=== PATIENT | male | born 1970 | race Caucasian/White ===

== ENCOUNTER 2020-03-09 02:40 | Observation (INO) | payer BC, SELFPAY ==
[2020-03-09 02:41] VITALS: BP 165/115; PULSE 140; RESP 20; TEMP 36.9; O2SAT 96; BMI 24.3
--- NOTE | 2020-03-09 02:43 | EKG12_ITS ---
Test Reason : Blood Pressure : / mmHG Vent. Rate : 116 BPM Atrial Rate : 116 BPM P-R Int : 112 ms QRS Dur : 080 ms QT Int : 354 ms P-R-T Axes : 078 075 048 degrees QTc Int : 492 ms Sinus tachycardia Otherwise normal ECG Confirmed by MO WILSON, ADRIAN ([id number]), graphic editor AMAURI OCONNOR ([id number]) on 03/11/2020 10:46:58 AM Referred By: RAMAN Confirmed By:ADRIAN HASSAN MD
--- NOTE | 2020-03-09 02:43 | CT_ITS ---
HISTORY: AMS, TRAUMA ADDITIONAL HISTORY: None provided. COMPARISON: None EXAMINATION/TECHNIQUE: CT Head or Brain W/O Contrast Injection. Axial, coronal and sagittal images. Number of images including paperwork: [id number]. A radiation dose optimization technique was used for this scan. FINDINGS: BRAIN: No acute hemorrhage or mass. No definite acute infarct; MRI more sensitive. VENTRICULAR SYSTEM: No hydrocephalus. PARANASAL SINUSES AND MASTOIDS: No air-fluid level in the imaged extent. ORBITS: Unremarkable imaged extent. SKELETON AND SOFT TISSUES: Calvarium intact. ASPECTS score: Not applicable. CT/Brain/Head without Contrast IMPRESSION: No acute intracranial abnormality. Individualized dose optimization techniques were used for this CT. at 0356 Reported and signed by: Karina Boogie MD Electronically Signed: Karnia Boogie MD at 3:56 EDT Tel , Service support ,
[2020-03-09] MEDS: Midazolam 5 MG/ML Syringe IM (02:48)
[2020-03-09] MEDS: Haloperidol Lactate 5 MG/ML Vial IM (02:48)
--- NOTE | 2020-03-09 02:54 | ED.RN ---
CPS NOTIFIED THIS PT IS TOO WORKED UP FOR AN EKG AT THIS TIME, WILL CALL WHEN THEY ARE CALM
--- NOTE | 2020-03-09 02:56 | CT_ITS ---
HISTORY: AMS, TRAUMA. ADDITIONAL HISTORY: None provided COMPARISON: None TECHNIQUE: Noncontrast CT images of the cervical spine. 2D images were reviewed to aid in assessment of the cervical spine. A radiation dose optimization technique was used for this scan. Number of images including paperwork: 429 FINDINGS: BONES: No acute fracture. No suspicious bone lesion. VERTEBRAL ALIGNMENT: No traumatic subluxation. Loss of normal cervical lordosis. DISCS AND JOINTS: Mild multilevel disc space narrowing. SPINAL CANAL AND FORAMINA: No critical canal stenosis. SOFT TISSUES: No prevertebral soft tissue swelling. No pathologic-appearing cervical adenopathy. Heterogeneous thyroid with subcentimeter nodules. No further evaluation or follow-up warranted based upon consensus guidelines. LUNG APICES: Unremarkable. PARANASAL SINUSES: Unremarkable imaged portions if any. CT/Spine Cervical without Contras IMPRESSION: No acute osseous abnormality. Individualized dose optimization techniques were used for this CT. at 0358 Reported and signed by: Karina Boogie MD Electronically Signed: Karina Boogie MD at 3:58 EDT Tel , Service support ,
[2020-03-09 02:57] VITALS: BP 130/66; PULSE 116; RESP 18; O2SAT 96
--- NOTE | 2020-03-09 03:04 | ED.RN ---
Pockets were searched by police. [facility] felder card, 7.30 in [place], cell phone and car keys were placed in bag with patient label and left at charge nurse desk.
[2020-03-09 03:08] LABS: Absolute Lymphocyte Count 3.98 X10^3/uL (0.83-4.51); Absolute Neutrophil Count 6.6 X10^3/uL (2.0-7.7); Basophil# 0.03 X10^3/uL; Basophil% 0.3 % (0-1); Eosinophil# 0.21 X10^3/uL; Eosinophils% 1.8 % (0-5); Hematocrit 48.1 % (40-54); Hemoglobin 15.2 g/dL (13.0-16.5); Lymphocyte # 3.98 X10^3/ul (4.0); Lymphocyte % 33.5 % (19-41); Mean Corp Hgb Conc 31.6 g/dL (32-36); Mean Corpuscular Hgb 31.3 pg (27.0-32.0); Mean Platelet Vol. 11.9 fl (6.2-12.0); Monocyte# 0.92 X10^3/uL; Monocyte% 7.7 % (0-10); NRBC Flagged by Analyzer 0 % (0-5); Neutrophil # 6.62 X10^3/uL (2.7-7.7); Neutrophil % 55.6 % (47-70); Platelet Count 268 K/mm3 (150-450); RBC Distribution Width CV 12.9 % (11.6-14.6); RBC Distribution Width SD 47.2 fl (35.1-43.9); Red Blood Count 4.86 M/mm3 (4.6-6.2); White Blood Count 11.9 K/mm3 (4.4-11.0)
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
[2020-03-09 03:22] LABS: Bacteria 0 SEEN /hpf (None Seen); Mucous, Urine 0 SEEN /hpf (<or=2+); Red Blood Cells-Urine 0 SEEN /hpf (0-5); Squamous Epithelial Cells - UA 0 SEEN /hpf (0-5); White Blood Cells 0 SEEN /hpf (0-5)
[2020-03-09 03:24] LABS: ALB/GLOB Ratio 0.8 RATIO (0.9-2.4); AST(SGOT) 53 U/L (15-37); Alanine Aminotransfer ALT/SGPT 42 U/L (16-61); Albumin, Serum 3.9 g/dL (3.2-5.0); Alkaline Phosphatase 81 U/L (45-117); Anion Gap 26 (5-15); BUN 15 mg/dL (7-18); BUN/Creat Ratio 8.6 RATIO (10-20); Calcium,Total 8.9 mg/dL (8.5-10.1); Chloride 101 mmol/L (98-107); Creatinine, Serum 1.74 mg/dL (0.70-1.30); EST Glomerular Filtration Rate 45 mL/min (>60); Est Glom Filt Rate - Afr Amer 54 mL/min (>60); Estimated Creatinine Clearance 53.61 ml/min; Globulin 4.6 g/dL (2.2-4.2); Glucose 188 mg/dL (74-106); Potassium 3.8 mmol/L (3.5-5.1); Protein, Total 8.5 g/dL (6.4-8.2); Sodium Level 138 mmol/L (136-145)
[2020-03-09 03:24] LABS: Color, Urine Yellow (Yellow); Glucose, Dipstick Normal (Normal); Ketone-Dipstick Negative (Negative); Leukocyte Esterase-Dipstick Negative /ul (Negative); Nitrite-Dipstick Negative (Negative); Occult Blood-Urine Negative /ul (Negative); Protein-Dipstick Negative (Negative); Urine Bilirubin Dipstick Negative (Negative); Urine Clarity Cloudy (Clear); Urine Urobilinogen Normal (Normal)
[2020-03-09 03:29] LABS: Amorphous Sediment 1+
[2020-03-09 03:35] LABS: Amphetamine Urine VISTA POSITIVE (<1000 ng/mL); Barbiturate Urine VISTA NEGATIVE (< 200 ng/mL); Benzodiazepine Urine VISTA NEGATIVE (< 200 ng/mL); Cocaine Urine VISTA NEGATIVE (< 300 ng/mL); Ecstacy Urine VISTA NEGATIVE (< 500 ng/mL); Methadone Urine VISTA NEGATIVE (< 300 ng/mL); PCP Urine VISTA NEGATIVE (< 25 ng/mL); THC Urine VISTA POSITIVE (< 50 ng/mL); Vista UDS pH Range 6
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
[2020-03-09 03:56] LABS: CPK Total, Creatine Kinase 882 U/L (39-308)
[2020-03-09] MEDS: 0.9% Normal Saline 1,000 ML 999 ML IV ×2 (04:06→05:20)
--- NOTE | 2020-03-09 05:21 | ED.RN ---
0500 restraints removed,pt sleeping.
[2020-03-09 06:14] VITALS: PULSE 67; RESP 18; O2SAT 98
[2020-03-09 07:01] LABS: Anion Gap 4 (5-15); BUN 16 mg/dL (7-18); BUN/Creat Ratio 11.9 RATIO (10-20); CPK Total, Creatine Kinase 1873 U/L (39-308); Calcium,Total 7.9 mg/dL (8.5-10.1); Chloride 111 mmol/L (98-107); Creatinine, Serum 1.35 mg/dL (0.70-1.30); EST Glomerular Filtration Rate 60 mL/min (>60); Est Glom Filt Rate - Afr Amer 72 mL/min (>60); Estimated Creatinine Clearance 69.09 ml/min; Glucose 105 mg/dL (74-106); Potassium 4.2 mmol/L (3.5-5.1); Sodium Level 142 mmol/L (136-145)
--- NOTE | 2020-03-09 07:17 | NURSING ---
DR DODSON FOR DR VINSON
--- NOTE | 2020-03-09 07:24 | NURSING ---
MED SURG [place]OTSONIS RHABDOMYOLYSIS OBS
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
[2020-03-09 07:41] VITALS: BP 116/65; PULSE 70; RESP 19; TEMP 36.4; O2SAT 97
[2020-03-09] MEDS: 0.9% Normal Saline 1,000 ML 150 ML IV (07:45)
[2020-03-09 08:02] VITALS: BMI 25.3; BMI 25.4
[2020-03-09 08:06] VITALS: BP 125/67; PULSE 73; RESP 12; TEMP 36.9; O2SAT 97
[2020-03-09 08:08] VITALS: BP 118/63
--- NOTE | 2020-03-09 11:26 | NURSING ---
Pt leaving [place], Dr. Dooley notified. Pt refused to allow this nurse to d/c IV. Pt self removed. Catheter intact.
== END 2020-03-09 11:20 | disposition left against medical advice (07) ==
LOC: ED 07:06 → PCU 12:56
PROVIDERS: Admitting Provider Family Medicine; Emergency Provider Emergency Medicine; Visit Provider Family Medicine
DX: F15.959 Other stimulant use, unspecified with stimulant-induced psychotic disorder, unspecified (principal); M62.82 Rhabdomyolysis; F17.210 Nicotine dependence, cigarettes, uncomplicated; R00.0 Tachycardia, unspecified; N17.9 Acute kidney failure, unspecified; R74.8 Abnormal levels of other serum enzymes; Z79.899 Other long term (current) drug therapy; Z79.82 Long term (current) use of aspirin
CPT/HCPCS: 36415; 70450; 72125; 80048; 80053; 80307; 80320; 81001; 82550; 84484; 85025; 93005; 96360; 96361; 96372; 99218; 99285; J7030; A4216; G0378; G0480

== ENCOUNTER 2020-05-23 13:34 | Emergency (ER) | payer BC, SELFPAY ==
[2020-03-09 08:02] VITALS: BMI 25.3
[2020-05-23 13:34] VITALS: BP 151/72; PULSE 63; RESP 16; TEMP 35.7; O2SAT 99; BMI 25.8
--- NOTE | 2020-05-23 13:46 | ED.DCSUM_ITS ---
History of Present Illness Chief Complaint: Med Refill Informant: Patient Narrative: Patient presents requesting a refill of his trazodone. He takes 200 mg nightly to help with sleep and depression. He states he moved here from [place] 1 month ago. He is currently out of his medication and in the process of getting his insurance cards switched. He states his tax compliance officer told him to come to the emergency room to get refills on his medications. - Past Medical History (1) Depression Status: Chronic Past Medical History - Allergies and Home Meds Allergies/Adverse Reactions: Allergies No Known Allergies Allergy (Verified 03/09/20 08:17) Primary Care Physician: [facility] [GROUP OF PHYSICIANS] - Zeferino Harris MD [STAFF PHYSICIAN] - Surgical History: - - unknown Smoking Status: Current every day smoker - Family History Paternal Family History: Reports: - - Unable to obtain secondary to sedation Maternal Family History: Reports: - - Unable to obtain secondary to sedation Review of Systems General: Denies: Chills, Fever Eyes: Denies: Visual changes - bilaterally ENT: Denies: Bilateral ear pain Cardiovascular: Denies: Chest pain Respiratory: Denies: Dyspnea, Cough Gastrointestinal: Denies: Abdominal pain Neurological: Denies: Headache Hematologic: Denies: Easy bruising, Easy bleeding Allergy: Denies: Uticaria Physical Exam Vital Signs/Narrative: Vital Signs Temp Pulse Resp BP Pulse Ox 05/23/20 13:34 96.3 F L 63 16 151/72 H 99 Inital Vital Signs reviewed: Yes General: Well nourished, Well developed Head: Normocephalic ENT: Moist mucous membranes Neck: Supple Cardiovascular: Regular rate, Regular rhythm Respiratory: No distress, CTA bilaterally Abdomen: Soft, Nontender Extremities: Nontender Skin: Normal color Neurological: Alert, Oriented x3 Psychological: Normal affect Diagnostic/Tx/Re-eval - Medical Decision Making I advised the patient at this time is only willing to write him a prescription for 10 pills. I advised him that the emergency room is not a place to come for refills of his chronic prescriptions. I will refer him to local PCP as well as to the counseling center. He states he is currently working with [facility]. I will also leave a message for our social work to see if they can offer any other assistance on how he can get his medications refilled. ED Disposition - Plan for ED Patient: Disposition: Home or Assisted Living Diagnosis: Medication refill Instructions: Med Refill Prescriptions: traZODone [Desyrel] 200 mg PO QHS #10 tab Transmission Status: Received by [id number] Referrals: Zeferino Harris MD [STAFF PHYSICIAN] - [facility] [GROUP OF PHYSICIANS] -
--- NOTE | 2020-05-24 19:00 | CM.ED ---
SOCIAL WORK Informant: Dr. eLvi Reason for Consult: Follow up call for resources from ED visit on 05/23/2020. Updated by Dr. Levi patient was seen in ER for medication refill-Trazodone. Patient moved to [place] from [place] 1 month ago. Reviewed patient's chart and completed follow up phone call. Patient reports does not currently have insurance and is working on getting set up with Medicaid in [place]. Patient states is working with [facility] and was told they do not have a doctor there to prescribe psych medications. Patient states needs to establish with PCP. Reviewed local primary care providers with patient. Patient to follow up with [facility] office tomorrow morning to set up new patient appointment. All questions answered. Patient declines any further needs. Jasmin Hua, AUTOMOBILE SERVICE ADVISOR, AIR QUALITY CHEMIST
== END 2020-05-23 14:14 | disposition home or self-care (01) ==
LOC: ED 13:59
PROVIDERS: Emergency Provider Emergency Medicine
DX: F32.9 Major depressive disorder, single episode, unspecified (principal); Z76.0 Encounter for issue of repeat prescription; Z79.82 Long term (current) use of aspirin; Z79.899 Other long term (current) drug therapy; F17.200 Nicotine dependence, unspecified, uncomplicated
CPT/HCPCS: 99282

== ENCOUNTER → 2020-05-28 11:04 | Outpatient (CLI) | payer SELFPAY ==
[2020-05-26 11:01] VITALS: BMI 25.8
[2020-05-28 12:41] LABS: Absolute Lymphocyte Count 1.54 X10^3/uL (0.83-4.51); Absolute Neutrophil Count 3.3 X10^3/uL (2.0-7.7); Basophil# 0.03 X10^3/uL; Basophil% 0.5 % (0-1); Eosinophil# 0.34 X10^3/uL; Eosinophils% 5.9 % (0-5); Hematocrit 48.1 % (40-54); Hemoglobin 15.1 g/dL (13.0-16.5); Lymphocyte # 1.54 X10^3/ul (4.0); Lymphocyte % 26.9 % (19-41); Mean Corp Hgb Conc 31.4 g/dL (32-36); Mean Corpuscular Hgb 30.1 pg (27.0-32.0); Mean Platelet Vol. 12.4 fl (6.2-12.0); Monocyte# 0.54 X10^3/uL; Monocyte% 9.4 % (0-10); NRBC Flagged by Analyzer 0 % (0-5); Neutrophil # 3.26 X10^3/uL (2.7-7.7); Platelet Count 243 K/mm3 (150-450); RBC Distribution Width CV 12.6 % (11.6-14.6); Red Blood Count 5.01 M/mm3 (4.6-6.2); White Blood Count 5.7 K/mm3 (4.4-11.0)
[2020-05-28 13:28] LABS: Anion Gap 2 (5-15); BUN 21 mg/dL (7-18); BUN/Creat Ratio 16.2 RATIO (10-20); Calcium,Total 9.2 mg/dL (8.5-10.1); Chloride 105 mmol/L (98-107); Cholesterol 211 mg/dL (200); EST Glomerular Filtration Rate 63 mL/min (>60); Est Glom Filt Rate - Afr Amer 76 mL/min (>60); Glucose 100 mg/dL (74-106); High Density Lipoprotein 45 mg/dL; PSA,Total - Annual Screen 0.57 ng/mL (0.00-4.00); Sodium Level 139 mmol/L (136-145); Thyroid Stim Hormone (TSH) 1.99 uIU/mL (0.358-3.74); Triglycerides 162 mg/dL; Very Low Density Lipoprotein 32 mg/dL (5-40)
[2020-05-28 14:11] LABS: HIV - WCH Non-Reactive (Nonreactive); Hepatitis C Antibody Non-Reactive (Nonreactive)
[2020-05-31 20:08] LABS: HEPATITIS B SURFACE AG Negative (Negative); Hepatitis Be Ag Negative (Negative)
[2020-06-01 01:19] LABS: Hepatitis Be Ab Negative (Negative)
== END ==
PROVIDERS: PCP Internal Medicine; Referring Provider Internal Medicine; Visit Provider Internal Medicine
DX: Z00.00 Encounter for general adult medical examination without abnormal findings (principal); K92.1 Melena; F11.90 Opioid use, unspecified, uncomplicated; F32.9 Major depressive disorder, single episode, unspecified
CPT/HCPCS: 36415; 80048; 80061; 83036; 84153; 84443; 85025; 86703; 86707; 86803; 87340; 87350; G0103

== ENCOUNTER → 2020-06-02 | Outpatient (CLI) | payer SELFPAY ==
[2020-05-26 11:01] VITALS: BMI 25.8
== END | disposition home or self-care (01) ==
LOC: LABSPEC 13:32
PROVIDERS: PCP Internal Medicine; Referring Provider Internal Medicine; Visit Provider Internal Medicine
DX: Z00.00 Encounter for general adult medical examination without abnormal findings (principal); F32.9 Major depressive disorder, single episode, unspecified; K92.1 Melena
CPT/HCPCS: 82274

== ENCOUNTER 2020-06-10 16:46 | Emergency (ER) | payer BC, SELFPAY ==
[2020-05-26 11:01] VITALS: BMI 25.8
[2020-06-10 16:47] VITALS: BP 151/84; PULSE 83; RESP 16; TEMP 36.6; O2SAT 98; BMI 25.1
--- NOTE | 2020-06-10 17:00 | ED.RN ---
PT [facility]-- [phone]
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
[2020-06-10 17:40] LABS: Absolute Lymphocyte Count 1.39 X10^3/uL (0.83-4.51); Absolute Neutrophil Count 6.9 X10^3/uL (2.0-7.7); Basophil# 0.02 X10^3/uL; Basophil% 0.2 % (0-1); Eosinophil# 0.04 X10^3/uL; Eosinophils% 0.5 % (0-5); Hematocrit 47.2 % (40-54); Hemoglobin 15.8 g/dL (13.0-16.5); Lymphocyte # 1.39 X10^3/ul (4.0); Lymphocyte % 15.7 % (19-41); Mean Corp Hgb Conc 33.5 g/dL (32-36); Mean Corpuscular Hgb 30.7 pg (27.0-32.0); Mean Corpuscular Volume 91.7 fL (80-94); Mean Platelet Vol. 11.5 fl (6.2-12.0); Monocyte# 0.56 X10^3/uL; Monocyte% 6.3 % (0-10); NRBC Flagged by Analyzer 0 % (0-5); Neutrophil # 6.85 X10^3/uL (2.7-7.7); Neutrophil % 77.1 % (47-70); Platelet Count 258 K/mm3 (150-450); RBC Distribution Width CV 12.7 % (11.6-14.6); RBC Distribution Width SD 43.1 fl (35.1-43.9); Red Blood Count 5.15 M/mm3 (4.6-6.2); White Blood Count 8.9 K/mm3 (4.4-11.0)
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
--- NOTE | 2020-06-10 18:00 | ED.RN ---
lab reports pt urine specimen in testing as water. pt reports he will give another sample with confronted by
[2020-06-10 18:09] LABS: Anion Gap 7 (5-15); BUN 16 mg/dL (7-18); Calcium,Total 9.9 mg/dL (8.5-10.1); Chloride 104 mmol/L (98-107); Creatinine, Serum 1.07 mg/dL (0.70-1.30); EST Glomerular Filtration Rate 78 mL/min (>60); Est Glom Filt Rate - Afr Amer 95 mL/min (>60); Estimated Creatinine Clearance 87.18 ml/min; Glucose 114 mg/dL (74-106); Potassium 4.2 mmol/L (3.5-5.1); Sodium Level 140 mmol/L (136-145); Thyroid Stim Hormone (TSH) 0.77 uIU/mL (0.358-3.74)
[2020-06-10 18:35] LABS: Alcohol, Blood (Medical)-Serum < 3.0 mg/dL
[2020-06-10 19:05] LABS: Amphetamine Urine VISTA POSITIVE (<1000 ng/mL); Barbiturate Urine VISTA NEGATIVE (< 200 ng/mL); Benzodiazepine Urine VISTA NEGATIVE (< 200 ng/mL); Cocaine Urine VISTA POSITIVE (< 300 ng/mL); Ecstacy Urine VISTA NEGATIVE (< 500 ng/mL); Methadone Urine VISTA NEGATIVE (< 300 ng/mL); PCP Urine VISTA NEGATIVE (< 25 ng/mL); THC Urine VISTA NEGATIVE (< 50 ng/mL); Vista UDS pH Range 6
[2020-06-10 19:18] VITALS: RESP 16
== END 2020-06-10 19:19 | disposition home or self-care (01) ==
PROVIDERS: Emergency Provider Emergency Medicine
DX: F22 Delusional disorders (principal); F19.10 Other psychoactive substance abuse, uncomplicated; F17.200 Nicotine dependence, unspecified, uncomplicated; Z79.82 Long term (current) use of aspirin; Z79.899 Other long term (current) drug therapy
CPT/HCPCS: 80048; 80307; 80320; 84443; 85025; 99282; G0480

== ENCOUNTER 2020-06-10 20:53 | Emergency (ER) | payer BC, SELFPAY ==
[2020-06-10 16:47] VITALS: BMI 25.1
[2020-06-10 20:53] VITALS: BP 167/94; PULSE 116; RESP 16; TEMP 37; O2SAT 96; BMI 24.9
--- NOTE | 2020-06-10 21:13 | EKG12_ITS ---
Test Reason : CP Blood Pressure : / mmHG Vent. Rate : 112 BPM Atrial Rate : 112 BPM P-R Int : 122 ms QRS Dur : 086 ms QT Int : 324 ms P-R-T Axes : 077 069 031 degrees QTc Int : 442 ms Sinus tachycardia Nonspecific T wave abnormality Abnormal ECG Confirmed by MO WILSON, ADRIAN ([id number]), editorial clerk MARIANA CAIN ([id number]) on 06/14/2020 1:07:09 PM Referred By: Confirmed By:ADRIAN HASSAN MD
--- NOTE | 2020-06-10 21:13 | ED.VIS.GEN ---
History of Present Illness Chief Complaint: Chest Pain Informant: Patient Onset: Today - about 15 min after getting home after leaving here Context: Sudden Onset - at rest Timing: Continuous Quality: pain Location: substernal; no radiation Current Severity: Mild Maximum Severity: Moderate Worsened by: nothing in particular Relieved by: nothing in particular Associated Symptoms: Suicidal thoughts. See below. Narrative: Patient presents with chest pain that has been there for about 2 hours now, he was seen here a little while earlier by myself because of paranoid behavior. Social work spoke with him. He denied being suicidal to me and her. Now he states he is suicidal to the point where he cannot guarantee his safety at home and feels like he will kill himself. When asked why he did not admit this to me or the high school social studies tutor earlier, he states there has been a lot of stress in his life and he now admits that he felt this way earlier but lied to us. He tested positive for cocaine, he states the last time he used that was yesterday, he did not use it at all today. - Past Medical History (1) Polysubstance abuse Status: Chronic (2) Depression Status: Chronic (3) Insomnia Status: Chronic Past Medical History - Allergies and Home Meds Allergies/Adverse Reactions: Allergies No Known Allergies Allergy (Verified 06/10/20 20:58) Primary Care Physician: Care Physician,No Primary [Primary Care Provider] - Surgical History: - - unknown Lives: Spouse/ Significant Other Smoking Status: Current every day smoker - Family History Paternal Family History: Family History (Last Updated 05/26/20 @ 11:00 by Elisha Chatman) Father Hypertension Myocardial infarction Mother COPD (chronic obstructive pulmonary disease) Grandmother Diabetes Breast cancer Family History: Reports: - - Unable to obtain secondary to sedation Maternal Family History: Family History (Last Updated 05/26/20 @ 11:00 by Elisha Chatman) Father Hypertension Myocardial infarction Mother COPD (chronic obstructive pulmonary disease) Grandmother Diabetes Breast cancer Family History: Reports: - - Unable to obtain secondary to sedation Review of Systems General: Denies: Chills, Fever, Sweats Eyes: Denies: Visual changes - bilaterally, Diplopia ENT: Denies: Bilateral ear pain, Rhinorrhea, Sore throat Cardiovascular: Reports: Chest pain. Denies: Palpitations Respiratory: Denies: Dyspnea, Cough, Dyspnea on exertion Gastrointestinal: Denies: Abdominal pain, Nausea, Vomiting, Diarrhea, Melena, Hematochezia Genitourinary: Denies: Dysuria, Hematuria, Frequency Musculoskeletal: Denies: Myalgias, Back pain, Extremity Pain Skin: Denies: Rash, Wounds Neurological: Denies: Headache, Weakness, Numbness Psych: Reports: Suicidal thoughts, Suicidal ideations Endocrine: Denies: Polyuria, Polydipsia Physical Exam Vital Signs/Narrative: Vital Signs Temp Pulse Resp BP Pulse Ox 06/10/20 20:53 98.6 F 116 H 16 167/94 H 96 Inital Vital Signs reviewed: Yes General: Well nourished, Well developed, No Acute Distress Head: Normocephalic, Atraumatic Eyes: Perrl, EOMI ENT: Moist mucous membranes, No rhinorrhea Neck: Supple, Nontender, No lymphadenopathy Cardiovascular: Regular rate, Regular rhythm, No murmurs Respiratory: No distress, CTA bilaterally, Chest nontender Abdomen: Soft, Nontender, Nondistended, Normal bowel sounds Back: Nontender, Normal Inspection. Negative for: CVA tenderness Extremities: Nontender, No edema. Negative for: Calf Tenderness Skin: Normal color, No rash, No Trauma Neurological: Alert, Oriented x3, Cranial nerves II-XII grossly intact, Normal Strength, Normal Sensation Psychological: - - Some paranoia. Patient keeps stating is there a gas leak in this room? My eyes keep watering. I think I need another room. Admits to suicidal ideation. Denies homicidal ideation. Diagnostic/Tx/Re-eval Impressions Chest X-Ray 06/10/20 21:43 IMPRESSION: Mild chronic interstitial changes. No acute disease Electronically Signed: Srinivasan Ortiz MD at 22:31 EST , Service support , 06/10/20 21:43 Chest 1 View (Portable) [RAD] Stat Laboratory Results 06/10/20 21:37 Troponin I < 0.015 - Rhythm Strip Rhythm Strip: Sinus Tach Rate: 112 - EKG Initial EKG Interpretation: No Acute Injury Pattern, Sinus Tachycardia, Non-Specific ST Changes - Inferior and lateral without associated ST segment elevations or depressions Prior: No Prior - Medical Decision Making On reevaluation after the negative testing, patient states his chest pain is resolved. He declined the GI cocktail, the discomfort resolved on its own, he was somewhat paranoid about taking the medication and asked me to explain it, which I did, however he did become more paranoid as he was observed for the next hour or 2. He was pacing the room concerned about what was going on where he could not see. We offered him something to help him relax and he declined it. He is wanting to talk to psychiatry because he is suicidal does not feel safe to go home. I do not feel that his chest pain was cocaine chest pain, since he had not had any in over 24 hours. It is certainly still possible to test positive in the urine for cocaine this far out, so that is nonspecific and does not indicate that he had any in the last 24 hours or otherwise. Given all this, and the lack of any ischemic EKG changes, he is medically cleared for crisis evaluation and I anticipate continuing to hold him on pink slip for psychiatric admission/transfer. ED Disposition - Plan for ED Patient: Disposition: Psychiatric Hospital or Unit Diagnosis: Chest pain, non-cardiac, Paranoia, Polysubstance abuse, Suicidal ideation Referrals: Care Physician,No Primary [Primary Care Provider] -
--- NOTE | 2020-06-10 21:43 | RAD_ITS ---
STUDY: X-RAY CHEST REASON FOR EXAM: Male, 49 years old. CHEST PAIN TECHNIQUE: AP portable COMPARISON: 07/01/2014 FINDINGS: There is mild interstitial thickening in both lower lobes. There is no demonstrated pleural abnormality. Normal size heart. Normal mediastinum and gadiel. Normal visualized pulmonary arteries. Normal visualized aortic arch and descending thoracic aorta. Normal visualized thoracic spine. Normal visualized ribs, clavicles, and shoulders. There is no demonstrated abnormality of the visualized soft tissue structures of the upper abdomen. No significant change since prior exam RAD/Chest 1 View (Portable) IMPRESSION: Mild chronic interstitial changes. No acute disease Electronically Signed: Srinivasan Ortiz MD at 22:31 EST , Service support ,
[2020-06-10 22:11] VITALS: BP 141/74; PULSE 98; RESP 16; O2SAT 96
[2020-06-10] MEDS: Ziprasidone IM 20 MG/ML VIAL IM (23:33)
[2020-06-10 23:46] VITALS: RESP 18
[2020-06-11] VITALS (7 sets, daily range): BP systolic 107; BP diastolic 63; PULSE 82; RESP 14–16; O2SAT 97
--- NOTE | 2020-06-11 00:30 | ED.RN ---
REPORT FAXED TO CRISIS AT [id number], THIS PT WILL BE TURNED OVER TO THE NEXT SHIFT AT 0030 THIS MORNING
--- NOTE | 2020-06-11 00:48 | ED.RN ---
crisis called to talk to patient. Patient at this time sedated and not able to talk to crisis. We will call crisis back when patient can wake up
--- NOTE | 2020-06-11 04:35 | ED.RN ---
CALLED CRISIS TO ADVISE JOSELIN THAT THIS PT IS AWAKE AND ABLE TO TALK
--- NOTE | 2020-06-11 05:26 | ED.VISSUMM ---
- ER Visit Summary Date of Service: 06/11/20 Chief Complaint: [] History of Present Illness: The patient is a 49 M [] Physical Examination: [] Test Results: [] Emergency Department Course and Treatment: [] Treatment Plan: [] Disposition: [] Impression: [] This note was generated with [facility] dictation software. It may contain incorrect words, spelling, and punctuation that were not noted in review of the chart prior to signing ED Disposition - Plan for ED Patient: Disposition: Psychiatric Hospital or Unit Diagnosis: Chest pain, non-cardiac, Paranoia, Polysubstance abuse, Suicidal ideation Instructions: ED Drug Abuse Referrals: Care Physician,No Primary [Primary Care Provider] -
== END 2020-06-11 05:37 | disposition home or self-care (01) ==
PROVIDERS: Emergency Provider Emergency Medicine
DX: R07.89 Other chest pain (principal); F22 Delusional disorders; R45.851 Suicidal ideations; F19.10 Other psychoactive substance abuse, uncomplicated; F32.9 Major depressive disorder, single episode, unspecified; F17.200 Nicotine dependence, unspecified, uncomplicated; Z79.82 Long term (current) use of aspirin; Z79.899 Other long term (current) drug therapy
CPT/HCPCS: 71045; 84484; 93005; 96372; 99285; J3486

== ENCOUNTER 2020-06-13 08:55 | Emergency (ER) | payer BC, SELFPAY ==
[2020-06-13 08:57] VITALS: BP 138/95; PULSE 102; RESP 16; TEMP 36.2; O2SAT 98; BMI 24.3
[2020-06-13] MEDS: LORazepam 2 MG/ML Syringe IM (09:10)
[2020-06-13] MEDS: Ziprasidone IM 20 MG/ML VIAL IM (09:10)
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
--- NOTE | 2020-06-13 09:31 | ED.RN ---
girlfriend presented to ed with concerns for pt. states he is a harm to self and other they way he has been acting irratically. requesting call from counselor so that she can share what has been going on with him he needs help. Aditi [phone]
[2020-06-13 09:57] LABS: Absolute Lymphocyte Count 1.34 X10^3/uL (0.83-4.51); Absolute Neutrophil Count 5.1 X10^3/uL (2.0-7.7); Basophil# 0.02 X10^3/uL; Basophil% 0.3 % (0-1); Eosinophil# 0.04 X10^3/uL; Eosinophils% 0.6 % (0-5); Hematocrit 42.8 % (40-54); Hemoglobin 14.8 g/dL (13.0-16.5); Lymphocyte # 1.34 X10^3/ul (4.0); Lymphocyte % 18.9 % (19-41); Mean Corp Hgb Conc 34.6 g/dL (32-36); Mean Corpuscular Hgb 31.4 pg (27.0-32.0); Mean Corpuscular Volume 90.9 fL (80-94); Mean Platelet Vol. 11.4 fl (6.2-12.0); Monocyte# 0.59 X10^3/uL; Monocyte% 8.3 % (0-10); NRBC Flagged by Analyzer 0 % (0-5); Neutrophil # 5.08 X10^3/uL (2.7-7.7); Neutrophil % 71.6 % (47-70); Platelet Count 253 K/mm3 (150-450); RBC Distribution Width CV 12.2 % (11.6-14.6); RBC Distribution Width SD 41.1 fl (35.1-43.9); Red Blood Count 4.71 M/mm3 (4.6-6.2); White Blood Count 7.1 K/mm3 (4.4-11.0)
[2020-06-13 10:01] VITALS: RESP 16
[2020-06-13 10:02] LABS: Amphetamine Urine VISTA POSITIVE (<1000 ng/mL); Barbiturate Urine VISTA NEGATIVE (< 200 ng/mL); Benzodiazepine Urine VISTA NEGATIVE (< 200 ng/mL); Cocaine Urine VISTA POSITIVE (< 300 ng/mL); Ecstacy Urine VISTA NEGATIVE (< 500 ng/mL); Methadone Urine VISTA NEGATIVE (< 300 ng/mL); PCP Urine VISTA NEGATIVE (< 25 ng/mL); THC Urine VISTA NEGATIVE (< 50 ng/mL); Vista UDS pH Range 6
[2020-06-13 10:08] LABS: Anion Gap 8 (5-15); BUN 13 mg/dL (7-18); BUN/Creat Ratio 11.7 RATIO (10-20); Calcium,Total 9.3 mg/dL (8.5-10.1); Chloride 103 mmol/L (98-107); Creatinine, Serum 1.11 mg/dL (0.70-1.30); EST Glomerular Filtration Rate 75 mL/min (>60); Est Glom Filt Rate - Afr Amer 91 mL/min (>60); Estimated Creatinine Clearance 84.03 ml/min; Glucose 124 mg/dL (74-106); Potassium 3.3 mmol/L (3.5-5.1); Sodium Level 137 mmol/L (136-145)
[2020-06-13 10:28] LABS: Alcohol, Blood (Medical)-Serum < 3.0 mg/dL
[2020-06-13 11:00] VITALS: RESP 20
[2020-06-13 11:45] VITALS: BP 132/81; PULSE 70; RESP 15; O2SAT 100
== END 2020-06-13 12:22 | disposition home or self-care (01) ==
LOC: ED 10:42
PROVIDERS: Emergency Provider Emergency Medicine
DX: F19.10 Other psychoactive substance abuse, uncomplicated (principal); F22 Delusional disorders; R41.0 Disorientation, unspecified; F41.9 Anxiety disorder, unspecified; R45.1 Restlessness and agitation; Z78.1 Physical restraint status; F17.200 Nicotine dependence, unspecified, uncomplicated; Z79.82 Long term (current) use of aspirin; Z79.899 Other long term (current) drug therapy
CPT/HCPCS: 36415; 80048; 80307; 80320; 85025; 96372; 99284; G0480; J3486

== ENCOUNTER → 2020-08-18 | Outpatient (CLI) | payer MEDICAID, SELFPAY | END | disposition home or self-care (01) | LOC: LABSPEC 13:52 | PROVIDERS: PCP Internal Medicine; Referring Provider Internal Medicine; Visit Provider Internal Medicine | DX: R05 Cough (principal); R50.9 Fever, unspecified | CPT/HCPCS: 87635; U0005; U0003 ==

== ENCOUNTER 2020-09-01 13:45 | Emergency (ER) | payer MEDICAID, SELFPAY ==
[2020-09-01 13:45] VITALS: BP 130/75; PULSE 92; RESP 17; TEMP 37.2; O2SAT 97; BMI 25.0
[2020-09-01 13:59] VITALS: O2SAT 97
--- NOTE | 2020-09-01 14:40 | RAD_ITS ---
STUDY: X-RAY CHEST REASON FOR EXAM: Male, 49 years old. Cough TECHNIQUE: Single AP portable view of the chest. COMPARISON: Comparison is made with prior study dated 06/10/2020. FINDINGS: The lungs are clear and expanded. There is no demonstrated pleural abnormality. Normal size heart. Normal mediastinum and gadiel. Normal visualized pulmonary arteries. Normal visualized aortic arch and descending thoracic aorta. Normal visualized thoracic spine. Normal visualized ribs, clavicles, and shoulders. There is no demonstrated abnormality of the visualized soft tissue structures of the upper abdomen. RAD/Chest 1 View (Portable) IMPRESSION: Normal x-ray examination of the chest. Electronically Signed: Jelnai Osuna MD at 14:59 EST , Service support ,
[2020-09-01] MEDS: Ondansetron ODT 4 MG Tablet PO (14:59)
[2020-09-01 15:01] VITALS: O2SAT 96
--- NOTE | 2020-09-01 15:02 | ED.DCSUM_ITS ---
- ER Visit Summary Date of Service: 09/01/20 Chief Complaint: Cough History of Present Illness: The patient is a [address] Castaneda. He reports he has a cough began 2 weeks ago. Is productive yellow sputum without blood. He has had subjective fever and chills. Complains of sore throat is 4- 10 severity. He has shortness of breath that is increased with exertion. He has been wheezing. He does not have an inhaler. Patient denies sick contacts. He does wear a mask. However he also complains of a decreased sense of taste and generalized weakness. Physical Examination: Vitals: Stable. Afebrile. General: Well-nourished and well-developed. Head: Normocephalic atraumatic. Neck: Supple, no lymphadenopathy. No JVD. Nontender. Cardiovascular: Regular rate and rhythm. No murmurs. Respiratory: No respiratory distress. Clear to auscultation bilaterally. Abdominal: Soft, nontender, nondistended, normal bowel sounds. No guarding, rebound, or peritoneal signs. Back: Nontender. Extremities: Nontender, no edema. Skin: Normal color, no rash. Neurologic: Alert and oriented ?3. Cranial nerves II through XII are intact. Normal strength and sensation. Psych: Normal affect. Test Results: COVID-19 is negative. Clinical Impression(s) from Imaging Studies Chest X-Ray 09/01/20 14:40 IMPRESSION: Normal x-ray examination of the chest. Electronically Signed: Jelani Osuna MD at 14:59 EST , Service support , Emergency Department Course and Treatment: Patient refused an IV and blood work. He was given Zofran p.o. Treatment Plan: Patient does smoke half pack per day. He will be discharged on doxycycline and prednisone. He is given a prescription for an inhaler. Follow- up his primary care physician in 3 to 5 days if not improving. Return to the emergency department for any worsening symptoms. Disposition: To home in improved and stable condition. Impression: 1. URI. 2. Tobacco abuse. This note was generated with [employer] software. It may contain incorrect words, spelling, and punctuation that were not noted in review of the chart prior to signing ED Disposition - Plan for ED Patient: Instructions: ED Upper Resp Infec Abx Tx Prescriptions: Prednisone [Deltasone] 40 mg PO DAILY #10 tab Doxycycline 100 mg PO BID #14 cap Albuterol Inhaler [Ventolin Hfa] 1 - 2 puff INHALATION Q4H PRN PRN #1 inhaler PRN Reason: Wheezing Referrals: Zenaida Edwards MD [Primary Care Provider] - 3-5 Days if not improving
== END 2020-09-01 15:47 | disposition home or self-care (01) ==
LOC: ED 14:47
PROVIDERS: Emergency Provider Emergency Medicine; PCP Internal Medicine
DX: J06.9 Acute upper respiratory infection, unspecified (principal); Z20.822 Contact with and (suspected) exposure to COVID-19; R43.9 Unspecified disturbances of smell and taste; R06.02 Shortness of breath; R06.2 Wheezing; J02.9 Acute pharyngitis, unspecified; R11.2 Nausea with vomiting, unspecified; F32.9 Major depressive disorder, single episode, unspecified; Z72.0 Tobacco use; Z79.82 Long term (current) use of aspirin; Z79.899 Other long term (current) drug therapy
CPT/HCPCS: 71045; 87426; 99283

== ENCOUNTER 2020-12-18 04:09 | Emergency (ER) | payer MEDICAID, SELFPAY ==
[2020-12-01 14:40] VITALS: BMI 25.0
[2020-12-18 04:10] VITALS: BP 138/91; PULSE 131; RESP 19; TEMP 37.4; O2SAT 97; BMI 22.8
--- NOTE | 2020-12-18 04:21 | EX.ED.VIS.PS ---
HPI <Dr. 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 Onset/Context/Timing Onset: - (unclear onset) Current Severity: Moderate Maximum Severity: Severe Worsened by: Situational factors Relieved by: nothing Associated Symptoms Associated Symptoms - Psych: Positive for Agitated and Paranoia; Negative for Suicidal Thoughts, Visual Hallucinations and Auditory Hallucinations Narrative Narrative: Please for involved on another call where this patient was, this patient states that his a dog attacked him, scratched him up, and he was very agitated as result of that, however police state that he was acting very paranoid, seeing things that were not there, at one point tried attacking an officer and then he ran away and was acting very unusual. They were concerned about an acute mental health issue. The patient denies having a history of this. He sees his doctor regularly and he takes trazodone for sleep and nothing else. He denies using drugs. He does not want to cooperate with us, and does not want me to evaluate him for injuries to his fingers and hands from the dog, which he states is his. Police gave me a different story, saying that he was having a verbal argument with his girlfriend who owns the dog, and that is likely why the dog attacked him. [facility] <Dr. Isaiah Gomes MD - Last Filed: 12/18/20 08:12> [facility] Medical History Heroin use Insomnia Home Medications trazodone 100 mg tablet 200 mg PO QHS #60 tab 12/01/20 [Rx Last Taken Unknown] albuterol sulfate [Ventolin HFA] 1 - 2 puff INHALATION Q4H PRN PRN #1 device 12/18/20 [Rx Last Taken Unknown] amoxicillin-pot clavulanate [Augmentin] 1 tab PO BID #7 tab 12/18/20 [Rx Last Taken Unknown] benzonatate [Tessalon Perles] 100 mg PO BID PRN #10 cap 12/18/20 [Rx Last Taken Unknown] Allergy/AdvReac Type Severity Reaction Status Date / Time No Known Allergies Allergy Verified 12/18/20 04:14 Family History (Updated 05/26/20 @ 11:00 by Elisha Chatman) Father Hypertension Myocardial infarction Mother COPD (chronic obstructive pulmonary disease) Grandmother Diabetes Breast cancer Social History Smoking Status: Current every day smoker tobacco type: cigarettes alcohol intake: never substance use type: heroin and other details: daily 1 Gram daily ROS <Dr. Isaiah Gomes MD - Last Filed: 12/18/20 08:12> ROS ED Constitutional Constitutional ED: Denies chills or fever(s) Eyes Eyes: Denies change in vision or diplopia ENT ENT ED: Denies rhinorrhea or sore throat Cardiovascular Cardiovascular: Denies chest pain or palpitations Respiratory/Chest Respiratory/Chest: Denies cough or dyspnea Gastrointestinal Gastrointestinal: Denies abdominal pain, diarrhea, nausea or vomiting Genitourinary Genitourinary ED: Denies dysuria or hematuria Musculoskeletal Musculoskeletal: Denies back pain or neck pain Integumentary Reports as per HPI and wounds; Denies abscess or rash Neurologic Neurologic: Denies headache(s), paresthesias or weakness Psychiatric Psychiatric: Denies anxiety or suicidal thoughts EXAM <Dr. Isaiah Gomes MD - Last Filed: 12/18/20 08:12> Physical Exam Const Vital Signs: 12/18/20 04:10 12/18/20 06:04 12/18/20 07:35 Temperature 99.3 F H Temperature Source Oral Pulse Rate 131 H 91 Respiratory Rate 19 H 16 20 H Blood Pressure 138/91 H Blood Pressure Mean 106 Pulse Ox 97 12/18/20 09:17 12/18/20 09:38 Temperature Temperature Source Pulse Rate 85 84 Respiratory Rate 16 16 Blood Pressure 132/87 H 138/77 H Blood Pressure Mean 102 Pulse Ox 99 96 Positive well nourished and well developed General Appearance ED: well developed and NAD HEENT Reports moist mucous membranes normocephalic and atraumatic Eyes PERRL and EOMs intact bilaterally Neck full ROM and supple Resp normal respiratory effort and clear to auscultation bilaterally Cardio regular rate, regular rhythm and no murmurs GI non-tender and non-distended Auscultation: normoactive bowel sounds Palpation: soft Back/Spine no CVA tenderness General Back: other FROM Extremity Extremity Narrative: Wounds to both hands, no other injuries seen. Multiple abrasions and one laceration after the patient finally allowed me to examine them. All extensor and flexion tendon function are intact. General Extremety ED: Negative for edema, pulses abnormal or tenderness General Extremity: Negative for edema or pulses abnormal Neuro oriented x3, CN's II-XII intact bilaterally and no sensory deficits noted Sensorium / Orientation: awake and alert Motor Exam: strength 5/5 throughout Psych Appearance: grossly normal Attitude: paranoid and uncooperative Activity / Motor Behavior: appropriate eye contact Speech: normal speech Thought Process: other Limited evaluation; patient is clearly saying what he feels he needs to so that we let him go Skin no rashes or lesions noted Skin Narrative: Multiple abrasions both hands. 2 cm irregular clean appearing full-thickness laceration at the volar base of the right ring finger with flexor tendons visible, intact, and without apparent injury to them. <Dr. Shawn Cooper DO - Last Filed: 12/18/20 15:23> Physical Exam Const Vital Signs: 12/18/20 04:10 12/18/20 06:04 12/18/20 07:35 Temperature 99.3 F H Temperature Source Oral Pulse Rate 131 H 91 Respiratory Rate 19 H 16 20 H Blood Pressure 138/91 H Blood Pressure Mean 106 Pulse Ox 97 12/18/20 09:17 12/18/20 09:38 Temperature Temperature Source Pulse Rate 85 84 Respiratory Rate 16 16 Blood Pressure 132/87 H 138/77 H Blood Pressure Mean 102 Pulse Ox 99 96 MDM <Dr. Isaiah Gomes MD - Last Filed: 12/18/20 08:12> [facility] Narrative Medical decision making narrative: Patient was agitated and not cooperative, initially he refused to give us blood saying my doctor just checked all of that and it was normal. Nursing requested Geodon for their safety in obtaining blood and urine from this patient, I thought that was a reasonable request. He was given Geodon 20 mg, he became more cooperative, he walked back and forth to the bathroom but was able to urinate initially, gave us blood. He was also then more open to me examining his wounds/hands, see above for those findings. His laceration was repaired after he allowed me to do it; sutures should be removed in about 10 days. He has a significant leukocytosis of unknown etiology, hopefully just demargination but I am ordering a urinalysis and a chest x-ray to rule out infections. He has continued to cough and had some wheezing here, he states that is new in the last several hours and he has no history of asthma or COPD although he is a heavy smoker. He had a head CT last year that showed no acute abnormalities or masses so I do not think that needs to be repeated. He has some acute kidney injury so he is ordered a liter of IV fluid since he is now little more relaxed, and added a TSH which returned within normal limits, but he refused the IV fluids and Hep-Lock, instead just drinking water here. His toxicology shows amphetamines, methamphetamines, barbiturates. He has an excuse for each 1 of those bladder positive. He states his brother gave him some coffee 2 days ago that had methamphetamine in it and he knows because he felt funny afterwards and he denies using any drugs intentionally in the last 48 hours. His urinalysis is negative, CXR has not yet been performed. Given Augmentin for dog bite to hand/finger. Lab Data Attestation: I reviewed the patient's lab results. Labs: Laboratory Results - last 24 hr 12/18/20 12/18/20 12/18/20 05:00 05:00 05:00 WBC 22.7 H RBC 5.11 Hgb 15.6 Hct 46.0 MCV 90.0 MCH 30.5 MCHC 33.9 RDW Std Deviation 40.4 RDW Coeff of Lyla 12.1 Plt Count 243 MPV 11.7 Immature Gran % (Auto) 1.000 H Neut % (Auto) 89.2 H Lymph % (Auto) 3.5 L [place] % (Auto) 6.0 Eos % (Auto) 0.0 Baso % (Auto) 0.3 Absolute Neuts (auto) 20.3 H Absolute Lymphs (auto) 0.79 L Nucleated RBC % 0 Differential Comment SCANNED Platelet Estimate ADEQUATE Sodium 139 Potassium 3.4 L Chloride 105 Carbon Dioxide 19.0 L Anion Gap 15 BUN 22 H Creatinine 2.03 H Estim Creat Clear Calc 44.89 Est GFR (MDRD) Af Amer 45 L Est GFR (MDRD) Non-Af 37 L BUN/Creatinine Ratio 10.8 Glucose 198 H Calcium 9.4 TSH Urine Color Urine Clarity Urine pH Ur Specific [place] Urine Protein Urine Glucose (UA) Urine Ketones Urine Occult Blood Urine Nitrite Urine Bilirubin Urine Urobilinogen Ur Leukocyte Esterase Urine RBC Urine WBC Ur Squamous Epith Cells Urine Bacteria Urine Mucus Urine Opiates Screen Urine Methadone Screen Ur Barbiturates Screen Ur Phencyclidine Scrn Ur Amphetamines Screen U Methamphetamin-MDMA U Benzodiazepines Scrn Urine Cocaine Screen U Cannabinoids Screen Ur Drug Screen Comment Ethyl Alcohol < 3.0 12/18/20 12/18/20 12/18/20 05:00 05:50 05:50 WBC RBC Hgb Hct MCV MCH MCHC RDW Std Deviation RDW Coeff of Lyla Plt Count MPV Immature Gran % (Auto) Neut % (Auto) Lymph % (Auto) [place] % (Auto) Eos % (Auto) Baso % (Auto) Absolute Neuts (auto) Absolute Lymphs (auto) Nucleated RBC % Differential Comment Platelet Estimate Sodium Potassium Chloride Carbon Dioxide Anion Gap BUN Creatinine Estim Creat Clear Calc Est GFR (MDRD) Af Amer Est GFR (MDRD) Non-Af BUN/Creatinine Ratio Glucose Calcium TSH 1.35 Urine Color Yellow Urine Clarity Cloudy Urine pH 6.0 Ur Specific [place] 1.025 Urine Protein 100 H Urine Glucose (UA) Normal Urine Ketones 5 H Urine Occult Blood 150 H Urine Nitrite Negative Urine Bilirubin Negative Urine Urobilinogen Normal Ur Leukocyte Esterase Negative Urine RBC 0-5 SEEN Urine WBC 0 SEEN Ur Squamous Epith Cells 0 SEEN Urine Bacteria 1+ Urine Mucus 0 SEEN Urine Opiates Screen NEGATIVE Urine Methadone Screen NEGATIVE Ur Barbiturates Screen POSITIVE H Ur Phencyclidine Scrn NEGATIVE Ur Amphetamines Screen POSITIVE H U Methamphetamin-MDMA POSITIVE H U Benzodiazepines Scrn NEGATIVE Urine Cocaine Screen NEGATIVE U Cannabinoids Screen NEGATIVE Ur Drug Screen Comment Ethyl Alcohol Radiography Diagnostic Testing: Radiology Impression Chest X-Ray 12/18/20 05:39 IMPRESSION: No radiographic evidence of acute cardiopulmonary disease. at 0821 Reported and signed by: Gelacio Lopez MD Electronically Signed: Gelacio Lopez MD at 8:20 EDT Tel , Service support , <Dr. Shawn Cooper, DO - Last Filed: 12/18/20 15:23> [facility] Lab Data Labs: Laboratory Results - last 24 hr 12/18/20 12/18/20 12/18/20 05:00 05:00 05:00 WBC 22.7 H RBC 5.11 Hgb 15.6 Hct 46.0 MCV 90.0 MCH 30.5 MCHC 33.9 RDW Std Deviation 40.4 RDW Coeff of [place]yla 12.1 Plt Count 243 MPV 11.7 Immature Gran % (Auto) 1.000 H Neut % (Auto) 89.2 H Lymph % (Auto) 3.5 L [place] % (Auto) 6.0 Eos % (Auto) 0.0 Baso % (Auto) 0.3 Absolute Neuts (auto) 20.3 H Absolute Lymphs (auto) 0.79 L Nucleated RBC % 0 Differential Comment SCANNED Platelet Estimate ADEQUATE Sodium 139 Potassium 3.4 L Chloride 105 Carbon Dioxide 19.0 L Anion Gap 15 BUN 22 H Creatinine 2.03 H Estim Creat Clear Calc 44.89 Est GFR (MDRD) Af Amer 45 L Est GFR (MDRD) Non-Af 37 L BUN/Creatinine Ratio 10.8 Glucose 198 H Calcium 9.4 TSH Urine Color Urine Clarity Urine pH Ur Specific [place] Urine Protein Urine Glucose (UA) Urine Ketones Urine Occult Blood Urine Nitrite Urine Bilirubin Urine Urobilinogen Ur Leukocyte Esterase Urine RBC Urine WBC Ur Squamous Epith Cells Urine Bacteria Urine Mucus Urine Opiates Screen Urine Methadone Screen Ur Barbiturates Screen Ur Phencyclidine Scrn Ur Amphetamines Screen U Methamphetamin-MDMA U Benzodiazepines Scrn Urine Cocaine Screen U Cannabinoids Screen Ur Drug Screen Comment Ethyl Alcohol < 3.0 12/18/20 12/18/20 12/18/20 05:00 05:50 05:50 WBC RBC Hgb Hct MCV MCH MCHC RDW Std Deviation RDW Coeff of Lyla Plt Count MPV Immature Gran % (Auto) Neut % (Auto) Lymph % (Auto) [place] % (Auto) Eos % (Auto) Baso % (Auto) Absolute Neuts (auto) Absolute Lymphs (auto) Nucleated RBC % Differential Comment Platelet Estimate Sodium Potassium Chloride Carbon Dioxide Anion Gap BUN Creatinine Estim Creat Clear Calc Est GFR (MDRD) Af Amer Est GFR (MDRD) Non-Af BUN/Creatinine Ratio Glucose Calcium TSH 1.35 Urine Color Yellow Urine Clarity Cloudy Urine pH 6.0 Ur Specific [place] 1.025 Urine Protein 100 H Urine Glucose (UA) Normal Urine Ketones 5 H Urine Occult Blood 150 H Urine Nitrite Negative Urine Bilirubin Negative Urine Urobilinogen Normal Ur Leukocyte Esterase Negative Urine RBC 0-5 SEEN Urine WBC 0 SEEN Ur Squamous Epith Cells 0 SEEN Urine Bacteria 1+ Urine Mucus 0 SEEN Urine Opiates Screen NEGATIVE Urine Methadone Screen NEGATIVE Ur Barbiturates Screen POSITIVE H Ur Phencyclidine Scrn NEGATIVE Ur Amphetamines Screen POSITIVE H U Methamphetamin-MDMA POSITIVE H U Benzodiazepines Scrn NEGATIVE Urine Cocaine Screen NEGATIVE U Cannabinoids Screen NEGATIVE Ur Drug Screen Comment Ethyl Alcohol Radiography Diagnostic Testing: Radiology Impression Chest X-Ray 12/18/20 05:39 IMPRESSION: No radiographic evidence of acute cardiopulmonary disease. at 0821 Reported and signed by: Gelacio Lopez MD Electronically Signed: Gelacio Lopez MD at 8:20 EDT Tel , Service support , Procedures <Dr. Isaiah Gomes MD - Last Filed: 12/18/20 08:12> Lacerations R ring finger: Length: 0.79 in Depth: Tendon (w/o apparent damage to tendons) Shape: Linear (fairly; a little irreg) Prep: Sterile Conditions and Chlorhexadine Laceration repair: Irrigated, Lidocaine (plain 1%, 3cc) and Local Irrigated (ml): 60 Number of Sutures/Conception: 5 Suture Information: Ethilon, Simple and 5-0 Discharge Plan Triage Chief Complaint: Mental Health ED Provider: Shawn Cooper Dx/Rx/DC Orders Clinical Impression: Paranoia, Agitation, Polysubstance abuse, Laceration of right ring finger, Open wound of right ring finger due to dog bite Instructions: ED Dog Bite, ED Drug Abuse, ED Laceration: All Closures Prescriptions: New amoxicillin-pot clavulanate [Augmentin] 875-125 mg tablet 1 tab PO BID Qty: 7 RF: 0 albuterol sulfate [Ventolin HFA] 90 mcg/actuation HFA aerosol inhaler 1 - 2 puff inhalation Q4H PRN PRN (Reason: Wheezing) Qty: 1 RF: 0 benzonatate [Tessalon Perles] 100 mg capsule 100 mg PO BID PRN (Reason: cough) Qty: 10 RF: 0 No Action trazodone 100 mg tablet 200 mg PO QHS Qty: 60 RF: 5 Primary Care Provider: Zenaida Edwards Referrals: Zenaida Edwards MD [Primary Care Provider] - 3-5 Days Activity Restrictions/Additional Instructions: Sutures need removed in 7 to 10 days. Disposition Disposition: Home, self care Discharge Date/Time: 12/18/20 09:39 Capacity <Dr. Isaiah Gomes MD - Last Filed: 12/18/20 08:12> Capacity Assessment Tool Can the patient make a choice & communicate that choice?: Yes Can the patient understand benefits, risks and alternatives?: Yes Can the patient make a logical, rational choice?: Yes Is the choice the patient makes consistent w/ their values?: Yes Is there an impending, emergent risk to the patient?: Unable to Determine Does the patient have an Advance Directive?: No Is there a Surrogate Available?: No
[2020-12-18] MEDS: Ziprasidone IM 20 MG/ML VIAL IM (04:44)
[2020-12-18 05:13] LABS: Absolute Lymphocyte Count 0.79 X10^3/uL (0.83-4.51); Absolute Neutrophil Count 20.3 X10^3/uL (2.0-7.7); Basophil# 0.06 X10^3/uL; Basophil% 0.3 % (0-1); Eosinophil# 0.01 X10^3/uL; Hemoglobin 15.6 g/dL (13.0-16.5); Lymphocyte # 0.79 X10^3/ul (0.83-4.51); Lymphocyte % 3.5 % (19-41); Mean Corp Hgb Conc 33.9 g/dL (32-36); Mean Corpuscular Hgb 30.5 pg (27.0-32.0); Mean Platelet Vol. 11.7 fl (6.2-12.0); Monocyte# 1.36 X10^3/uL; NRBC Flagged by Analyzer 0 % (0-5); Neutrophil # 20.26 X10^3/uL (2.7-7.7); Neutrophil % 89.2 % (47-70); POSITIVE DIFFERENTIAL YES; Platelet Count 243 K/mm3 (150-450); RBC Distribution Width CV 12.1 % (11.6-14.6); RBC Distribution Width SD 40.4 fl (35.1-43.9); Red Blood Count 5.11 M/mm3 (4.6-6.2); White Blood Count 22.7 K/mm3 (4.4-11.0)
[2020-12-18 05:17] LABS: Differential Indicated SCAN CRITERIA MET
[2020-12-18 05:27] LABS: Anion Gap 15 (5-15); BUN 22 mg/dL (7-18); BUN/Creat Ratio 10.8 RATIO (10-20); Calcium,Total 9.4 mg/dL (8.5-10.1); Chloride 105 mmol/L (98-107); Creatinine, Serum 2.03 mg/dL (0.70-1.30); EST Glomerular Filtration Rate 37 mL/min (>60); Est Glom Filt Rate - Afr Amer 45 mL/min (>60); Estimated Creatinine Clearance 44.89 ml/min; Glucose 198 mg/dL (74-106); Potassium 3.4 mmol/L (3.5-5.1); Sodium Level 139 mmol/L (136-145)
[2020-12-18 05:35] LABS: Differential Comment SCANNED; Platelet Estimate ADEQUATE (ADEQ)
--- NOTE | 2020-12-18 05:39 | RAD_ITS ---
EXAM: XR CHEST, 1 VIEW : 1970 CLINICAL INDICATION: medical clearance, leukocytosis TECHNIQUE: Frontal view of the chest. This report was created using [employer] report generation technology. COMPARISON: 09/01/2020 FINDINGS: LUNGS AND PLEURAL SPACES: Unremarkable. No consolidation or edema. No pneumothorax. No effusion. HEART: Unremarkable. Cardiac silhouette not enlarged. MEDIASTINUM: Central airways and mediastinal contour are unremarkable. BONES/JOINTS: Unremarkable. SOFT TISSUES: Unremarkable. RAD/Chest 1 View (Portable) IMPRESSION: No radiographic evidence of acute cardiopulmonary disease. at 0821 Reported and signed by: Gelacio Lopez MD Electronically Signed: Gelacio Lopez MD at 8:20 EDT Tel , Service support ,
[2020-12-18 05:40] LABS: Alcohol, Blood (Medical)-Serum < 3.0 mg/dL
--- NOTE | 2020-12-18 06:00 | ED.RN ---
PAGED CRISIS TO SEE THIS PT, WAITING FOR A CALL BACK
--- NOTE | 2020-12-18 06:03 | ED.RN ---
CRISIS WILL COME HERE TO SEE THIS PT
[2020-12-18 06:04] VITALS: RESP 16
[2020-12-18 06:06] LABS: Mucous, Urine 0 SEEN /hpf (<or=2+); Squamous Epithelial Cells - UA 0 SEEN /hpf (0-5); White Blood Cells 0 SEEN /hpf (0-5)
[2020-12-18 06:07] LABS: Color, Urine Yellow (Yellow); Glucose, Dipstick Normal (Normal); Ketone-Dipstick 5 mg/dl (Negative); Leukocyte Esterase-Dipstick Negative /ul (Negative); Nitrite-Dipstick Negative (Negative); Occult Blood-Urine 150 /ul (Negative); Protein-Dipstick 100 mg/dl (Negative); Specific Gravity, Urine 1.025 (1.002-1.030); Urine Bilirubin Dipstick Negative (Negative); Urine Clarity Cloudy (Clear); Urine Urobilinogen Normal (Normal)
[2020-12-18 06:09] LABS: Thyroid Stim Hormone (TSH) 1.35 uIU/mL (0.358-3.74)
[2020-12-18 06:14] LABS: Bacteria 1+ /hpf (None Seen); Red Blood Cells-Urine 0-5 SEEN /hpf (0-5)
[2020-12-18 06:35] LABS: Amphetamine Urine VISTA POSITIVE (<1000 ng/mL); Barbiturate Urine VISTA POSITIVE (< 200 ng/mL); Benzodiazepine Urine VISTA NEGATIVE (< 200 ng/mL); Cocaine Urine VISTA NEGATIVE (< 300 ng/mL); Ecstacy Urine VISTA POSITIVE (< 500 ng/mL); Methadone Urine VISTA NEGATIVE (< 300 ng/mL); PCP Urine VISTA NEGATIVE (< 25 ng/mL); THC Urine VISTA NEGATIVE (< 50 ng/mL); Vista UDS pH Range 5
[2020-12-18] MEDS: guaiFENesin Dm 10 ML UDC PO (06:37)
[2020-12-18] MEDS: Diphth,Pertuss(Acell),Tet Vac 0.5 ML Vial IM (06:37)
[2020-12-18 07:35] VITALS: PULSE 91; RESP 20
[2020-12-18] MEDS: Albuterol 2.5 MG/3 ML VIAL.NEB. INHALATION (07:35)
[2020-12-18] MEDS: Amox/Clavulanate 875 MG Tablet PO (09:01)
[2020-12-18 09:17] VITALS: BP 132/87; PULSE 85; RESP 16; O2SAT 99
[2020-12-18 09:38] VITALS: BP 138/77; PULSE 84; RESP 16; O2SAT 96
== END 2020-12-18 09:39 | disposition home or self-care (01) ==
PROVIDERS: Emergency Medicine; Emergency Provider Emergency Medicine; PCP Internal Medicine
DX: F22 Delusional disorders (principal); R45.1 Restlessness and agitation; S61.214A Laceration without foreign body of right ring finger without damage to nail, initial encounter; S60.511A Abrasion of right hand, initial encounter; S60.512A Abrasion of left hand, initial encounter; Z23 Encounter for immunization; W54.0XXA Bitten by dog, initial encounter; Y93.9 Activity, unspecified; Y92.9 Unspecified place or not applicable; Y99.9 Unspecified external cause status; Z20.822 Contact with and (suspected) exposure to COVID-19; N17.9 Acute kidney failure, unspecified; F19.10 Other psychoactive substance abuse, uncomplicated; F17.210 Nicotine dependence, cigarettes, uncomplicated
CPT/HCPCS: 12001; 71045; 80048; 80307; 81001; 82077; 84443; 85025; 87426; 90715; 94640; 96372; 99285; J3486